=== PATIENT | male | born 2005 | race Hispanic/Latino ===

== ENCOUNTER 2025-04-02 12:17 | Emergency (ER) | payer SELFPAY ==
[2025-04-02 13:48] LABS: Influenza A Ag Negative; Influenza B Ag Negative
[2025-04-02 13:49] LABS: SARS-CoV-2 Antigen Rapid Res Positive (Negative)
--- NOTE | 2025-04-02 14:09 | EDPHYS ---
Physician Documentation [facility] Name: Derrick Vallejo Age: 19 yrs Sex: Male : 2005 Arrival Date: 04/02/2025 Time: 12:17 Bed 12 Private MD: ED Physician Silverio Obregon HPI: 04/02 13:23 This 19 yrs old Male presents to ER via Ambulatory with complaints of Cough, pm1 Sore Throat. 13:23 The patient or guardian reports cough, with productive sputum. Onset: The pm1 symptoms/episode began/occurred 4 day(s) ago. Severity of symptoms: in the emergency department the symptoms are unchanged. Modifying factors: The symptoms are alleviated by nothing. Associated signs and symptoms: Pertinent positives: sore throat, Pertinent negatives: fever, shortness of breath. The patient has not recently seen a physician. Exposure to nephew who tested positive for covid. Historical: - Allergies: 12:50 No Known Allergies; aa5 - Home Meds: 12:50 None [Active]; aa5 - PMHx: 12:50 None; aa5 - PSHx: 12:50 None; aa5 - Immunization history:: Adult Immunizations unknown. - Infectious Disease History:: Denies. - Social history:: Smoking status: Reported history of juuling and/or vaping. ROS: 13:28 Constitutional: Negative for fever, chills, and weight loss, pm1 21:05 MS/Extremity: Negative for injury and deformity, Skin: Negative for injury, rash, and pm1 discoloration, Neuro: Negative for headache, weakness, numbness, tingling, and seizure, 21:05 ENT: Positive for sore throat, 21:05 Cardiovascular: Negative for chest pain, 21:05 Respiratory: Positive for cough, 21:05 All other systems are negative, Exam: 13:28 Constitutional: This is a well developed, well nourished patient who is awake, alert, pm1 and in no acute distress. Head/Face: Normocephalic, atraumatic. 13:28 Skin: Warm, dry with normal turgor. Normal color with no rashes, no lesions, and no evidence of cellulitis. MS/ Extremity: Pulses equal, no cyanosis. Neurovascular intact. Full, normal range of motion. 13:28 ENT: Exam is negative for acute changes, External ear(s): are unremarkable, Ear canal(s): are normal, TM's: are normal, 13:28 Cardiovascular: Exam negative for acute changes, 13:28 Respiratory: Exam negative for acute changes, respiratory distress, shortness of breath, Breath sounds: are clear throughout, 13:28 Neuro: Exam negative for acute changes, Motor: is normal, Vital Signs: 12:50 BP 112 / 70; Pulse 65; Resp 18 S; Temp 97.5(TE); Pulse Ox 99% on R/A; Weight 81.65 kg aa5 (R); Height 5 ft. 9 in. ; 12:50 Body Mass Index 26.58 (81.65 kg, 175.26 cm) aa5 MDM: 12:53 Medical Screening Exam initiated pm1 14:08 Data reviewed: vital signs. Counseling: I had a detailed discussion with the patient pm1 and/or guardian regarding the historical points, exam findings, and any diagnostic results supporting the discharge/admit diagnosis, lab results, the need for outpatient follow up, to return to the emergency department if symptoms worsen or persist or if there are any questions or concerns that arise at home. 04/02 12:53 Order name: COVID-19 Ag + Flu A+B Ag; Complete Time: 13:53 aa5 04/02 12:53 Order name: Group A Streptococcus Rapid; Complete Time: 13:33 aa5 Administered Medications: No medications were administered Disposition Summary: 04/02/25 14:09 Discharge Ordered Notes: Location: Home pm1 Problem: new pm1 Symptoms: have improved pm1 Condition: Stable pm1 Diagnosis - Covid-19 pm1 Followup: pm1 - With: Emergency Department - When: As needed - Reason: Worsening of condition Followup: pm1 - With: Private Physician - When: 2 - 3 days - Reason: Continuance of care, Re-evaluation by your physician Discharge Instructions: - Discharge Summary Sheet pm1 - COVID-19 pm1 Forms: - Work release form pm1 - Medication Reconciliation Form pm1 - Antibiotic Education pm1 - Prescription Opioid Use pm1 - Patient Portal Instructions pm1 - Leadership Thank You Letter pm1 Prescriptions: - Amoxicillin 500 mg Oral Capsule - take 1 capsule ORAL route every 8 hours for 10 days; 30 tablet; Refills: 0, pm1 Product Selection Permitted - Tessalon Perles 100 mg Oral Capsule - take 1 capsule ORAL route every 8 hours As needed; 15 capsule; Refills: 0, pm1 Product Selection Permitted Signatures: Sarah Trujillo, RN RN aa5 Darius Dickerson, ORACLE ERP DEVELOPER ORACLE ERP DEVELOPER pm1
--- NOTE | 2025-04-02 14:09 | ER ---
Nurse's Notes [facility] Name: Derrick Vallejo Age: 19 yrs Sex: Male : 2005 Arrival Date: 04/02/2025 Time: 12:17 Bed 12 Private MD: Diagnosis: Covid-19 Presentation: 04/02 12:50 Chief complaint: Patient states: sore throat and headache that began 2 days ago, aa5 reports wants covid-19 test. Coronavirus screen: headache, sore throat. Ebola Screen: Patient denies travel to an Ebola-affected area in the 21 days before illness onset. Initial Sepsis Screen: Does the patient meet any 2 criteria? No. Patient's initial sepsis screen is negative. Does the patient have a suspected source of infection? No. Patient's initial sepsis screen is negative. Risk Assessment: Do you want to hurt yourself or someone else? Patient reports no desire to harm self or others. Onset of symptoms was March 2025. 12:50 Acuity: MARITZA 4 aa5 12:50 Method Of Arrival: Ambulatory aa5 Historical: - Allergies: 12:50 No Known Allergies; aa5 - Home Meds: 12:50 None [Active]; aa5 - PMHx: 12:50 None; aa5 - PSHx: 12:50 None; aa5 - Immunization history:: Adult Immunizations unknown. - Infectious Disease History:: Denies. - Social history:: Smoking status: Reported history of juuling and/or vaping. Screenin:00 [facility] ED Fall Risk Assessment (Adult) History of falling in the last 3 months, aa5 including since admission No falls in past 3 months (0 pts) Confusion or Disorientation No (0 pts) Intoxicated or Sedated No (0 pts) Impaired Gait No (0 pts) Mobility Assist Device Used No (0 pt) Altered Elimination No (0 pt) Score/Fall Risk Level 0 - 2 = Low Risk Oriented to surroundings, Maintained a safe environment, Educated pt \T\ family on fall prevention, incl call for assistance when getting out of bed, Assessed \T\ reinforced patient's understanding of fall precautions. Abuse screen: Denies threats or abuse. Nutritional screening: No deficits noted. Tuberculosis screening: No symptoms or risk factors identified. Assessment: 12:50 General: Appears comfortable, Behavior is calm, cooperative. Pain: Complains of pain in aa5 sore throat. Neuro: Level of Consciousness is awake, alert, obeys commands, Oriented to person, place, time, situation. Cardiovascular: Heart tones S1 S2 present Patient's skin is warm and dry. Rhythm is regular. Respiratory: Airway is patent Respiratory effort is even, unlabored, Respiratory pattern is regular, symmetrical, Breath sounds are clear bilaterally. GI: No signs and/or symptoms were reported involving the gastrointestinal system. : No signs and/or symptoms were reported regarding the genitourinary system. EENT: Throat c/o sore throat . Derm: Skin is pink, warm \T\ dry. Musculoskeletal: Range of motion: intact in all extremities. 13:30 Reassessment: Patient is alert, oriented x 3, equal unlabored respirations, skin aa5 warm/dry/pink. 15:05 Reassessment: Patient is alert, oriented x 3, equal unlabored respirations, skin aa5 warm/dry/pink. Vital Signs: 12:50 BP 112 / 70; Pulse 65; Resp 18 S; Temp 97.5(TE); Pulse Ox 99% on R/A; Weight 81.65 kg aa5 (R); Height 5 ft. 9 in. ; 12:50 Body Mass Index 26.58 (81.65 kg, 175.26 cm) aa5 ED Course: 12:21 Patient arrived in ED. mr 12:44 Darius Dickerson, JADYN is PHCP. pm1 12:44 Silverio Obregon MD is Attending Physician. pm1 12:50 Sarah Barth, RN is Primary Nurse. aa5 12:50 Arm band placed on. aa5 12:50 Patient has correct armband on for positive identification. Bed in low position. Call aa5 light in reach. Side rails up X 1. 12:51 Triage completed. aa5 12:57 COVID swab sent to lab. Flu and/or RSV swab sent to lab. Strep swab sent to lab. aa5 15:05 No provider procedures requiring assistance completed. Patient did not have IV access aa5 during this emergency room visit. Administered Medications: No medications were administered Medication: 15:00 VIS not applicable for this client. aa5 Outcome: 14:09 Discharge ordered by . pm1 15:05 Discharged to home ambulatory, with family, aa5 15:05 Condition: stable 15:05 Discharge instructions given to patient, Instructed on discharge instructions, follow up and referral plans. medication usage, Demonstrated understanding of instructions, follow-up care, medications, Prescriptions given X 2, 15:09 Patient left the ED. aa5 Signatures: Luna Jamil, Shyam Howe BarthSarah, RN RN aa5 Darius Dickerson, LICENSED MENTAL HEALTH PROFESSIONAL LICENSED MENTAL HEALTH PROFESSIONAL pm1
== END 2025-04-02 15:09 | disposition home or self-care (01) ==
LOC: ER 12:17
DX: U07.1 COVID-19 (principal)
CPT/HCPCS: 36415; 87428; 99283

== ENCOUNTER 2025-06-19 09:54 | Emergency (ER) | payer SELFPAY ==
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
[2025-06-19] MEDS ORDERED: HYDROCODONE/APAP 5/325 MG TAB ONE (10:49)
[2025-06-19 12:31] VITALS: O2SAT 100
[2025-06-19 12:33] VITALS: BP 118/70; TEMP 98.4
== END 2025-06-19 11:09 | disposition home or self-care (01) ==
LOC: ER 09:54
DX: T24.601A Corrosion of second degree of unspecified site of right lower limb, except ankle and foot, initial encounter (principal)
CPT/HCPCS: 99283